=== PATIENT | female | born 1970 | race Caucasian/White ===

== ENCOUNTER 2017-06-18 15:29 | Emergency (ER) | payer OTHER ==
[~2017-06-18] VITALS: Ht 172.7 cm; Wt 177.0 kg
[2017-06-18 15:39] VITALS: BP 112/76; PULSE 82; RESP 15; O2SAT 98
--- NOTE | 2017-06-18 15:53 | ED.REPORT ---
HPI-Abd Pain F Under 40 Date of Service Jun 18, 2017 ED Provider: Rashi Alanis MD A 46 year old female with a history of uterine ablation and tubal ligation who presents to the ED complaining of left-sided flank/abdominal pain. The pain began five days ago and and has persisted since despite chiropractics and massage. The pain is exacerbated by movement and relieved by rest. This is accompanied by mild nausea, though the pt denies hematuria. The pt was seen in Urgent Care yesterday and diagnosed with a kidney stone. She denies any history of kidney stones previously. Nursing Notes Stated Complaint: KIDNEY STONE Chief Complaint: Female Abdominal Pain Nursing Notes Reviewed: Yes Allergies: Coded Allergies: codeine (Verified Allergy, Unknown, VOMITING, 09/06/09) General Time Seen by MD: 15:52 Chief Complaint Flank pain left Hx Obtained From: Patient Arrived By: Walk-in Sudden in Onset?: No Onset Occurred: 5 days ago Symptom Duration: Since onset Recent Healthcare: No recent hospitalization, Recent doctor visit Similar Sx Previous: No Past Medical History Past Medical History asthma pneumonia depression Past Surgical History uterine ablation Reports: Cholecystectomy Reports: Tubal ligation Smoking History Current Every Day Smoker Social History Other Social History: Good social support, Ambulatory Status Independent Review of Systems Constitutional: Denies: Fever Respiratory: Denies: Non-productive cough, Shortness of breath Cardiovascular: Denies: Chest pain GI: Denies: Hematemesis, Nausea, Vomiting Female: Reports: Flank pain Musculoskeletal: Denies: Neck pain Complete sys rev & neg: except as marked. Skin: Denies Rash Physical Exam Initial Vital Signs Vital Signs (First) Date Time Temp Pulse Resp B/P Pulse Ox O2 Delivery O2 Flow Rate FiO2 06/18/17 15:39 37 82 15 112/76 98 Room Air Initial VS: Reviewed General/Constitutional: Awake, Alert Respiratory / Chest: Atraumatic, Breath sounds NL, Breath sounds = bilat, No respiratory distress Cardiovascular: Heart rate NL, Regular rhythm, Heart sounds NL, No gallop, No murmurs, No rubs Abdomen: Atraumatic, Soft, Non-tender, No distention Back: Full range of motion left percussive CVAT Head / Eyes: Atraumatic, Normocephalic, PERRL, EOMI ENT: Atraumatic, Airway patent, Mucous membranes moist Skin: Atraumatic, Color NL, No rash, Warm, Dry Neurologic: Oriented X3, Speech NL, No motor deficits, No sensory deficits Neck: Atraumatic, Supple, Full range of motion Upper Extremity / MS: Atraumatic, Full range of motion Lower Extremity / Pelvis / MS: Atraumatic, Full range of motion Psychiatric: Affect NL, Mood NL Interpretation & Diagnostics Interpretation & Diagnostics: CT KUB: IMPRESSION: No findings of stones or obstructive uropathy can be seen. There is a 3.4 cm left ovarian cyst is seen. In a patient of this age, this is attributed to a prominent functional cyst. At clinical discretion, a followup pelvic ultrasound is suggested in 6 weeks to assure resolution/ improvement. Incidental note is made of: Small hiatal hernia Focal L5-S1 degenerative change Dictated by: Steffen Phillips M.D. on 06/18/2017 at 16:37 Approved by: Steffen Phillips M.D. on 06/18/2017 at 16:40 Lab Results Interpretation Result Diagram: 06/18/17 1628 06/18/17 1628 Test 06/18/17 16:19 06/18/17 16:28 Urine Color Straw (YELLOW) Urine Appearance Clear (CLEAR,HAZY) Urine pH 7.0 (5.0-8.0) Urine Specific [place] 1.005 (1.003-1.035) Urine Protein Negativemg/dL (NEG,TRACE) Urine Glucose (UA) Negativemg/dL (NEGATIVE) Urine Ketones Negativemg/dL (NEGATIVE) Urine Occult Blood Trace (NEGATIVE) Urine Nitrite Negative (NEGATIVE) Urine Bilirubin Negative (NEGATIVE) Urine Urobilinogen Normalmg/dL (NORMAL) Urine Leukocyte Esterase Negative (NEGATIVE) Urine RBC 0-2/hpf (0-2) Urine WBC 0-5/hpf (0-5) Urine Epithelial Cells Few/hpf (NONE-MOD) Urine Crystals None seen (NONE SEEN) Urine Bacteria Few/hpf (NONE-FEW) Urine Hyaline Casts None/lpf (NONE) Urine Granular Casts None seen (NONE SEEN) Urine Waxy Casts None seen (NONE SEEN) Urine Red Blood Cell Casts None seen (NONE SEEN) Urine White Blood Cell Casts None seen (NONE SEEN) Urine Mucus None seen (None Seen) Urine Trichomonas None seen (NONE SEEN) Urine Yeast None (NONE SEEN) Urinalysis Comment None Urine Culture Reflexed Not indicated White Blood Count 5.3th/mm3 (3.8-10.1) Red Blood Count 4.21mil/mm3 (3.90-5.20) Hemoglobin 14.0g/dL (12.0-15.6) Hematocrit 38.6% (35.0-46.0) Mean Corpuscular Volume 91.7fL (81-100) Mean Corpuscular Hemoglobin 33.3pg (27.0-35.0) Mean Corpuscular Hemoglobin Concent 36.3% (32.0-37.0) Red Cell Distribution Width 12.1% (12.3-15.4) Platelet Count 243bil/L (150-400) Neutrophils (%) (Auto) 51.7% (40-74) Lymphocytes (%) (Auto) 36.4% (14-46) Monocytes (%) (Auto) 6.5% (4-12) Eosinophils (%) (Auto) 4.8% (0-5) Basophils (%) (Auto) 0.6% (0-3) Sodium Level 138mEq/L (134-144) Potassium Level 3.8mEq/L (3.5-5.2) Chloride Level 101mEq/L (97-108) Carbon Dioxide Level 22mmol/L (18-29) Blood Urea Nitrogen 12mg/dL (6-24) Creatinine 0.71mg/dL (0.57-1.00) Estimat Glomerular Filtration Rate 126mL/min (>59) Glucose Level 114mg/dL (60-99) Calcium Level 9.3mg/dL (8.5-10.1) Total Bilirubin 0.5mg/dL (0.0-1.2) Aspartate Amino Transf (AST/SGOT) 17U/L (0-50) Alanine Aminotransferase (ALT/SGPT) 16U/L (0-32) Alkaline Phosphatase 45U/L (25-150) Total Protein 6.4g/dL (6.4-8.4) Albumin 4.1g/dL (3.4-5.0) Lipase 21U/L (13-60) Human Chorionic Gonadotropin, Qual Negative (Negative) Re-Eval/Medical Decision Med Decision/Clinical Course A 46 year old female with a history of uterine ablation and tubal ligation who presents to the ED complaining of left-sided flank/abdominal pain. The pain began five days ago and and has persisted since despite chiropractics and massage. The pain is exacerbated by movement and relieved by rest. This is accompanied by mild nausea, though the pt denies hematuria. The pt was seen in Urgent Care yesterday and diagnosed with a kidney stone. She denies any history of kidney stones previously. Here in the emergency department the patient is afebrile, hemodynamically stable and in no apparent distress with examination as above. She was treated with the below medications: Zofran, Dilaudid, IV fluids She was reevaluated thereafter and reported significant improvement in her symptoms. UA neg, no signs of UTI, no blood CT KUB: IMPRESSION: No findings of stones or obstructive uropathy can be seen. There is a 3.4 cm left ovarian cyst is seen. In a patient of this age, this is attributed to a prominent functional cyst. At clinical discretion, a followup pelvic ultrasound is suggested in 6 weeks to assure resolution/ improvement. Laboratory studies notable as below: CBC unremarkable CMP unremarkable Lipase within normal limits HCG negative UA trace occult blood no signs of UTI At this time I see no findings just a acute surgical intra-abdominal process. The pain is relatively mild my suspicion for ovarian torsion is low. Presents with left-sided ovarian cyst correlates with her pain and is the likely cause. In the absence of significant hematuria or findings of kidney stone on CT scan this seems like an unlikely cause of her pain. I recommended that she stop taking Flomax. She will follow up closely with her primary care physician. She is to continue ibuprofen and has been prescribed [place] for breakthrough pain. Prior to discharge follow-up and return precautions were reviewed in detail with the patient who verbalized understanding and agreement with the plan. The patient was discharged in stable condition. Source of Hx: Old records Re-Evaluation/Progress : Time of Eval: 18:13 Patient Status: Condition improved Re-Evaluation/Progress Note: Pt rechecked, who is comfortable. The diagnosis and plan for discharge are discussed. The pt understands and agrees with the plan. All questions are addressed at this time. Counseled Regarding: Diagnosis, Lab results, Need for follow-up, When/why to return to ED Discharge & Departure Primary Impression: Ovarian cyst Laterality: left Qualified Code: N83.202 - Unspecified ovarian cyst, left side Additional Impressions: Left flank pain Hematuria Disposition: Home Discharge Condition All VS Reviewed: Yes Condition: Stable Patient Instructions: Ovarian Cyst (ED) Additional Instructions: Thank you for seeking care at the emergency room. It is difficult for us to make definitive diagnoses in the ED but we believe that you are experiencing a left-sided ovarian cyst. This will resolve on its own. This may take approximately one week. Our primary goal today in the Emergency Department was to evaluate you for any life-threatening conditions. Your evaluation was reassuring. Take ibuprofen as directed for pain. Stop taking the Flomax. You will be discharged with a prescription for Vicodin. Take this pain medication as prescribed. You should follow-up with your primary doctor in the next week. You should return to the Emergency Department immediately if you develop worsening flank pain, fevers, vomiting, cough, shortness of breath, chest pain, lightheadedness, weakness or any other concerning signs or symptoms. Thank you for letting us partake in your care today. You have been prescribed a narcotic for pain relief. These drugs are usually combined with acetaminophen (Tylenol#3, Percocet, Darvocet, Anexsia, Vicodin) or aspirin (Empirin#3, Percodan, Synalogs-DC) for increased effect. Narcotics act on the central nervous system to reduce pain; they also impair mental alertness and physical abilities. We advise you not to drink alcohol, drive a car, or operate dangerous equipment when you are taking these drugs. You can lessen stomach irritation from your medicine by taking it with meals or a full glass of water. Common side effects of narcotics are: Nausea and vomiting , heartburn, constipation, dizziness, sleepiness, and mood changes. If you have bothersome side effects or symptoms of an allergic reaction (itching, hives, rash), stop taking your medicine and call your doctor or the emergency room right away. Please keep your narcotic medicine well out of the reach of children. Referrals: Luz Marina Greer (PCP) Scribe Attestation Portions of this note were transcribed by Jennifer Garcia. I, Dr. Alanis personally performed the history, physical exam and medical decision-making; I reviewed and confirmed the accuracy of the information in the transcribed note. copies to: Case,Rashi Montalvo MD Jun 18, 2017 15:53 JENNIFER GARCIA Jun 18, 2017 16:01
[2017-06-18] MEDS ORDERED: Ondansetron 2 mg/mL 2 mL Inj IVPUSH ONE (16:00)
[2017-06-18] MEDS ORDERED: 0.9% Sodium Chloride 1,000 ML IV ONE (16:00)
[2017-06-18] MEDS ORDERED: HYDROmorphone 0.5 mg/0.5 mL iSecure Syringe IVPUSH PRN (16:00)
[2017-06-18 16:32] LABS: APPEARANCE,URINE CLEAR (CLEAR,HAZY); COLOR,URINE STRAW (YELLOW); OCCULT BLOOD,URINE TRACE (NEGATIVE); UROBILINOGEN,URINE NORMAL (NORMAL)
[2017-06-18 16:38] LABS: BASOPHILS % (AUTO) 0.6 % (0-3); EOSINOPHILS % (AUTO) 4.8 % (0-5); MONOCYTES % (AUTO) 6.5 % (4-12); Mean Corpuscular Hemoglobin 33.3 pg (27.0-35.0); Mean Corpuscular Volume 91.7 fL (81-100); NEUTROPHILS % (AUTO) 51.7 % (40-74); Platelet Count 243 bil/L (150-400)
[2017-06-18 17:04] LABS: Lipase 21 U/L (13-60)
--- NOTE | 2017-06-18 17:42 | DRSVH ---
PROCEDURE: CT KUB ([id number]) INDICATIONS: L flank pain TECHNIQUE: Noncontrast 5 mm thick sections acquired from the diaphragms to the symphysis. 5 mm thick coronal an d sagittal reformats were then performed. For radiation dose reduction, the following was used: aut omated exposure control, adjustment of mA and/or kV according to patient size. COMPARISON: [facility], CT, ABD/PELVIS W/CON (PNL), 01/10/2012, 22:24. FINDINGS: Image quality: Excellent. Lung bases: Lung bases are clear. Heart size is normal. A small hiatal hernia is incidentally note d. Urinary system: Both kidneys are normal in size. No kidney stones. No hydronephrosis or perinephri c fat stranding. Both ureters appear non-dilated throughout their expected courses. Bladder wall th ickness is normal; no calcified bladder stones. Other solid organs: Liver and spleen are normal in size. Gallbladder has been removed. Pancreas is normal in contours. No adrenal nodules. Peritoneum and bowel: Unenhanced bowel loops demonstrate normal wall thickness and caliber. No free fluid or air. Nodes and vessels: No retroperitoneal or mesenteric adenopathy by size criteria. Aorta and inferior vena cava are normal in caliber. Abdominal wall: No ventral hernias. Pelvis: No free pelvic fluid. No inguinal hernias or adenopathy. A 3.4 cm left ovarian cyst is see n that measures water density. Bones: No suspicious bony lesions. No vertebral body compression fractures. Mild levoconvex scolio tic curvature is noted. Focal L5-S1 degenerative change is seen. IMPRESSION: No findings of stones or obstructive uropathy can be seen. There is a 3.4 cm left ovarian cyst is seen. In a patient of this age, this is attributed to a promi nent functional cyst. At clinical discretion, a followup pelvic ultrasound is suggested in 6 weeks to assure resolution/ improvement. Incidental note is made of: Small hiatal hernia Focal L5-S1 degenerative change Dictated by: Steffen Phillips M.D. on 06/18/2017 at 16:37 Approved by: Steffen Phillips M.D. on 06/18/2017 at 16:40
[2017-06-18 18:00] VITALS: BP 100/63; PULSE 60; RESP 16; O2SAT 96
[2017-06-18] MEDS ORDERED: _HYDROcodone/APAP 5-325 mg Tablet PO PRN (18:35)
[2017-06-18 19:21] VITALS: BP 110/62; PULSE 59; RESP 16; O2SAT 97
== END 2017-06-18 19:05 | disposition home or self-care (01) ==
LOC: SED 15:29
DX: N83.202 Unspecified ovarian cyst, left side (principal); R31.9 Hematuria, unspecified; Z98.51 Tubal ligation status; J45.909 Unspecified asthma, uncomplicated; Z87.01 Personal history of pneumonia (recurrent); F17.200 Nicotine dependence, unspecified, uncomplicated; Z88.5 Allergy status to narcotic agent
CPT/HCPCS: 36415; 74176; 80053; 81000; 83690; 84703; 85025; 96361; 96374; 96375; 99285; J1170; J2405; J7030

== ENCOUNTER 2017-07-05 09:57 | Emergency (ER) | payer OTHER ==
[~2017-07-05] VITALS: Ht 172.7 cm; Wt 77.7 kg
[2017-07-05 10:00] VITALS: BP 119/82; PULSE 102; RESP 18; O2SAT 98
--- NOTE | 2017-07-05 10:05 | ED.REPORT ---
HPI-Back Pain 40 and Over Date of Service Jul 05, 2017 ED Provider: Dr. Méndez The pt is a 46 y/o female with a hx of uterine ablation and tubal ligation who presents to the ED complaining of sudden, severe left flank pain, onset 3 weeks ago. Her pain is exacerbated with bending forward and is only mildly relieved by laying down flat. She has been taking prednisone and hydrocodone, which does not help. The pt was seen at the ED 2 weeks ago for the same complaint. At that time, her CT showed a 3.4 cm left ovarian cyst. She states this pain is not similar to her previous ovarian cyst. She has never experienced similar sx before. She also reports hyperesthesia, intermittent blurry vision and 2 months of intermittent "nerve pain" in her right leg, near the ankle. She denies back pain with palpation, abdominal pain, chest pain, shortness of breath, cough, fever, night sweats, weight loss, and urinary and fecal incontinence. Nursing Notes Stated Complaint: SEVERE BACK PAIN FOR 3 WEEKS Chief Complaint: Back Pain or Injury Nursing Notes Reviewed: Yes Allergies: Coded Allergies: codeine (Verified Allergy, Unknown, VOMITING, 09/06/09) General Time Seen by MD: 10:05 Chief Complaint Flank pain left Hx Obtained From: Patient Arrived By: Walk-in Sudden in Onset?: Yes Onset Occurred: More than a week ago... (3 weeks) Symptom Duration: Since onset Location: : Flank left Quality: Painful Radiation: : Does not radiate Severity: Current: Severe Severity: Maximum: Severe Recent Healthcare: Recent doctor visit, Recent testing Similar Sx Previous: No Past Medical History Past Medical History asthma pneumonia depression Past Surgical History uterine ablation Reports: Cholecystectomy Reports: Tubal ligation Smoking History Former Smoker Social History Other Social History: Good social support, Ambulatory Status Independent Review of Systems Reports: hyperesthesia Reports: intermittent nerve pain in her right leg, near the ankle Denies: back pain with palpation Denies: night sweats Denies: weight loss Constitutional: Denies: Fever Respiratory: Denies: Non-productive cough, Shortness of breath GI: Denies: Abdominal pain Female: Reports: Flank pain, Denies: Incontinence Neurologic: Reports: Vision change (intermittent blurry vision) Complete sys rev & neg: except as marked. Physical Exam Initial Vital Signs Vital Signs (First) Date Time Temp Pulse Resp B/P Pulse Ox O2 Delivery O2 Flow Rate FiO2 07/05/17 10:00 36.3 102 18 119/82 98 Room Air Initial VS: Reviewed Head / Eyes: Atraumatic, Normocephalic Neck: Supple, Non-tender, Full range of motion Extremities: Vascular intact, Neuro intact, No swelling, No tenderness Skin: Warm, Dry, No cyanosis General/Constitutional: Awake, Alert, Well appearing, Cooperative Respiratory / Chest: Atraumatic, No respiratory distress Cardiovascular: Heart rate NL, Peripheral circulation NL Abdomen: Atraumatic, Soft, Non-tender, No guarding, No rebound Back: Atraumatic, Non-tender, Straight leg raise neg No spine tenderness Neurologic: Oriented X3, Speech NL, No motor deficits, No sensory deficits Interpretation & Diagnostics PROCEDURE: MRI LUMBAR SPINE WITHOUT CONTRAST ([id number]) IMPRESSION: 1. Disc disease at L3-L4, causing posterior deviation of the right L4 nerve root within the lateral recess; recommend correlation with clinical symptoms to ascertain relevance of this finding. 2. Moderate to severe left L5-S1 foraminal stenosis, secondary to disc disease, associated with possible mild flattening deformity of the left L5 nerve root within the neural foramen; recommend correlation with clinical symptoms to ascertain relevance of this finding. 3. Small amount of free fluid within the posterior pelvis, within physiological limits in a menstruating female. Dictated by: Remington Valdez M.D. on 07/05/2017 at 12:31 Approved by: Remington Valdez M.D. on 07/05/2017 at 12:36 Re-Eval/Medical Decision Source of Hx: Old records Re-Evaluation/Progress : Time of Eval: 14:01 Re-Evaluation/Progress Note: Rechecked pt. Discussed imaging results, diagnosis and plan to discharge. Pt understands and agrees with the plan. F/U instruction and RTER warning given. All questions addressed. Counseled Regarding: Diagnosis, Need for follow-up, When/why to return to ED Discharge & Departure Impression: Primary Impression: Low back pain Chronicity: chronic Back pain laterality: left Sciatica presence: without sciatica Qualified Code: M54.5 - Low back pain Additional Impressions: Lumbar disc disease Neural foraminal stenosis of lumbosacral spine Disposition: Home Discharge Condition All VS Reviewed: Yes Condition: Stable Patient Instructions: Lumbar Spinal Stenosis (ED) Additional Instructions: No dangerous condition is discovered. You have some degree of nerve impingement demonstrated on the MRI. For now I recommend Tylenol for pain. Use hydrocodone/APAP as needed for more severe pain. Follow-up right away for new or worsening symptoms. Follow-up next week with [facility] for further evaluation and treatment as indicated. Referrals: Ninoska Ho (PCP) Luz Marina Greer Scribe Attestation Portions of this note were transcribed by Gem Doyle. I,, personally performed the history,physical exam and medical decision-making;I reviewed and confirmed the accuracy of the information in the transcribed note. Signed by Myah Booth. 07/05/17 copies to: Luz Marina Greer; Ninoska Ho Kirk H MD Jul 05, 2017 10:05 Gem Doyle Jul 05, 2017 10:16
[2017-07-05] MEDS ORDERED: HYDROcodone-APAP 10-325 mg PO ONE (11:10)
--- NOTE | 2017-07-05 12:37 | DRSVH ---
PROCEDURE: MRI LUMBAR SPINE WITHOUT CONTRAST ([id number]) INDICATIONS: left paraspinous pain TECHNIQUE: Noncontrast sagittal T1 spin echo and T2 fast echo, sagittal STIR, axial T1 and T2 fast spin echo thr ough the lumbar spine. In cases with scoliosis, additional coronal T2 fast spin echo may be performe d. COMPARISON: [facility], CR, ABD ACUTE SERIES, 03/12/2007, 3:38. FINDINGS: Image quality: Excellent. Alignment and Curvature: There is loss of normal lumbar lordosis , and otherwise normal bony alignme nt. 5 lumbar type vertebral bodies are present by plain film. Bone Marrow: Marrow is of normal overall signal. No acute vertebral body compression fractures. Th ere is mild reactive signal within the endplates adjacent to the the L4-L5 and L5-S1 intervertebral d iscs. Spinal Cord: Conus medullaris terminates at the upper L2 level. Visualized cord demonstrates normal signal and size. Paraspinous Soft Tissues: No paravertebral masses. Small amount of physiologic free fluid within th e posterior visualized pelvis. L1-L2: Normal appearance. L2-L3: Normal appearance. L3-L4: Disc desiccation and diffuse disc bulge, with superimposed right paracentral broad-based protr usion. Bilateral facet hypertrophy. Mild canal stenosis. Mild right foraminal stenosis. No left gurinder inal stenosis. Mild posterior deviation of the right L4 nerve root within the lateral recess. L4-L5: Disc desiccation and diffuse disc bulge. Mild facet hypertrophy and ligamentum flavum hypertro phy bilaterally. Mild canal stenosis. Mild foraminal stenosis bilaterally. L5-S1: Disc height loss and desiccation, as well as diffuse disc bulge. Bilateral facet and ligamentu m flavum hypertrophy. No significant canal stenosis. Moderate to severe left and mild right foraminal stenosis. Possible mild flattening deformity of the left L5 nerve root within the neural foramen. IMPRESSION: 1. Disc disease at L3-L4, causing posterior deviation of the right L4 nerve root within the lateral r ecess; recommend correlation with clinical symptoms to ascertain relevance of this finding. 2. Moderate to severe left L5-S1 foraminal stenosis, secondary to disc disease, associated with possi ble mild flattening deformity of the left L5 nerve root within the neural foramen; recommend correlat ion with clinical symptoms to ascertain relevance of this finding. 3. Small amount of free fluid within the posterior pelvis, within physiological limits in a menstruat ing female. Dictated by: Remington Valdez M.D. on 07/05/2017 at 12:31 Approved by: Remington Valdez M.D. on 07/05/2017 at 12:36
[2017-07-05] MEDS ORDERED: HYDR-4003 PO (14:21)
[2017-07-05 14:56] VITALS: BP 112/68; PULSE 67; RESP 16; O2SAT 96
== END 2017-07-05 14:58 | disposition home or self-care (01) ==
LOC: SED 09:57
DX: M51.37 Other intervertebral disc degeneration, lumbosacral region (principal); M48.06 Spinal stenosis, lumbar region; J45.909 Unspecified asthma, uncomplicated; Z98.890 Other specified postprocedural states; Z98.51 Tubal ligation status; Z90.49 Acquired absence of other specified parts of digestive tract; Z87.891 Personal history of nicotine dependence; Z88.5 Allergy status to narcotic agent